=== PATIENT | female | born 1990 | race Two or more races ===

== ENCOUNTER 2022-03-08 01:18 | Emergency (ER) | payer OTHER ==
[~2022-03-08] VITALS: Ht 167.6 cm; Wt 81.8 kg
[2022-03-08] MEDS ORDERED: GUAI120017 PO (01:45)
[2022-03-08] MEDS ORDERED: ALBU8HFA IH (01:45)
[2022-03-08 01:52] LABS: COVID AG,FIA SOURCE NASAL SWAB
[2022-03-08 02:18] LABS: INFLUENZA TYPE A NEGATIVE FOR TYPE A (NEGATIVE); INFLUENZA TYPE B NEGATIVE FOR TYPE B (NEGATIVE)
[2022-03-08] MEDS ORDERED: ALBUTEROL SULFATE 2.5 MG/0.5 ML NEB SOLUTION NEB ONE (03:00)
[2022-03-08] MEDS ORDERED: ALBUTEROL SULFATE HFA 90 MCG/PUFF 8 GM INHALER IH ONE (03:00)
[2022-03-08] MEDS ORDERED: IPRATROPIUM BROMIDE 0.5 MG/2.5 ML NEB SOLUTION NEB ONE (03:00)
[2022-03-08 04:03] VITALS: BP 138/84
== END 2022-03-08 04:07 | disposition home or self-care (01) ==
LOC: EMS 01:20
DX: J45.901 Unspecified asthma with (acute) exacerbation (principal); F12.90 Cannabis use, unspecified, uncomplicated; D64.9 Anemia, unspecified; Z88.0 Allergy status to penicillin; Z20.822 Contact with and (suspected) exposure to COVID-19
CPT/HCPCS: 87804; 94060; 94640; 99284; J3535; J7613; Z7502

== ENCOUNTER 2022-03-13 17:09 | Emergency (ER) | payer OTHER ==
[~2022-03-13] VITALS: Ht 167.6 cm; Wt 81.8 kg
[~2022-03-13 17:09] MED LIST: ALBU8HFA IH; GUAI120017 PO
[2022-03-13 17:29] LABS: BASOPHILS % (AUTO) 0.6 % (0.0-2.0); EOSINOPHILS % (AUTO) 10.8 % (1.0-6.0); HEMATOCRIT 44.6 % (36-46); HEMOGLOBIN 14.8 g/dL (12.0-16.0); LYMPHOCYTES # (AUTO) 2.3 K/uL (1.0-4.8); LYMPHOCYTES % (AUTO) 14.9 % (22.0-44.0); MEAN CORPUSCULAR HEMOGLOBIN 30.5 pg (26.0-34.0); MEAN CORPUSCULAR HGB CONC 33.1 G/dL (31.0-37.0); MEAN CORPUSCULAR VOLUME 92 fL (80-100); MONOCYTES # (AUTO) 1.3 K/uL (0.1-1.0); MONOCYTES % (AUTO) 8.2 % (2.0-9.0); NEUTROPHILS # (AUTO) 10.3 K/uL (1.8-7.7); NEUTROPHILS % (AUTO) 65.5 % (40.0-70.0); PLATELET COUNT (AUTO) 354 K/uL (150-450); RED BLOOD CELL COUNT(AUTO) 4.84 MIL/uL (4.00-5.20); RED CELL DISTRIBUTION WIDTH 14.3 % (11.5-14.5)
[2022-03-13] MEDS ORDERED: ALBUTEROL SULFATE 2.5 MG/0.5 ML NEB SOLUTION NEB ONE ×2 (17:30→21:15)
[2022-03-13] MEDS ORDERED: MethylPREDNISolone SOD SUCC 125 MG/2 ML VIAL IVP ONE (17:30)
[2022-03-13] MEDS ORDERED: IPRATROPIUM BROMIDE 0.5 MG/2.5 ML NEB SOLUTION NEB ONE (17:30)
[2022-03-13 17:48] LABS: COVID AG,FIA SOURCE NASOPHARYNGEAL
[2022-03-13 17:51] LABS: ANION GAP 8 mmol/L (8-16); CALCIUM, TOTAL 9.7 mg/dL (8.8-10.5); CARBON DIOXIDE 26 mmol/L (22-29); CHLORIDE 97 mmol/L (98-107); CREATININE 0.75 mg/dL (0.60-1.30); GLUCOSE,RANDOM 96 mg/dL (70-110); POTASSIUM 3.5 mmol/L (3.5-5.1); SODIUM SERUM 131 mmol/L (136-145); UREA NITROGEN, BLOOD 4 mg/dL (7-18)
[2022-03-13 17:56] LABS: D-DIMER 0.54 mg/L FEU (0.00-0.50)
[2022-03-13 17:57] LABS: GLOMERULAR FILTR. RATE CALC > 60 mL/min (>60)
[2022-03-13 17:59] LABS: ALANINE AMINOTRANSFERASE 32 U/L (12-78); ALBUMIN 4.3 g/dL (3.4-5.0); ALKALINE PHOSPHATASE 122 U/L (46-116); ASPARTATE AMINOTRANSFERASE 22 U/L (15-37); BILIRUBIN,TOTAL 0.4 mg/dL (0.1-1.0); CREATINE KINASE, TOTAL ONLY 111 U/L (26-192)
[2022-03-13 18:04] LABS: B-TYPE NATRIURETIC PEPTIDE < 5 pg/mL (0-100)
[2022-03-13] MEDS ORDERED: IOHEXOL 350 MG/ML 100 ML VIAL ONE (18:16)
[2022-03-13] MEDS ORDERED: SODIUM CHLORIDE 0.9% 100 ML ONE (18:16)
[2022-03-13 18:39] LABS: INFLUENZA TYPE A NEGATIVE FOR TYPE A (NEGATIVE); INFLUENZA TYPE B NEGATIVE FOR TYPE B (NEGATIVE)
[2022-03-13] MEDS ORDERED: PRED-554 PO (21:55)
[2022-03-13] MEDS ORDERED: ALBUTEROL SULFATE HFA 90 MCG/PUFF 8 GM INHALER IH ONE (22:00)
[2022-03-13 22:19] VITALS: BP 110/68
== END 2022-03-13 22:34 | disposition still patient (30) ==
LOC: EMS 17:14
DX: J45.901 Unspecified asthma with (acute) exacerbation (principal); F12.90 Cannabis use, unspecified, uncomplicated; D64.9 Anemia, unspecified; Z20.822 Contact with and (suspected) exposure to COVID-19
CPT/HCPCS: 99285; 96374; 71275; 71045; 87426; 80053; 82550; 83735; 83880; 84484; 84703; 85025; 85379; 85610; 85730; 87804; 36415; 93005; 94640; 94060; 94644; J2930; Q9967; J7050; J3535; J7613

== ENCOUNTER 2022-12-05 13:47 | Emergency (ER) | payer OTHER ==
[~2022-12-05] VITALS: Ht 167.6 cm; Wt 88.6 kg
[~2022-12-05 13:47] MED LIST changes: +ALBU18HF12 IH; -ALBU8HFA IH; +PRED-554 PO
[2022-12-05 13:49] VITALS: TEMP 98.1
[2022-12-05] MEDS ORDERED: LORA10TA7 PO (13:51)
[2022-12-05] MEDS ORDERED: IPRATROPIUM BROMIDE 0.5 MG/2.5 ML NEB SOLUTION NEB ONE (14:30)
[2022-12-05] MEDS ORDERED: ALBUTEROL SULFATE 2.5 MG/0.5 ML NEB SOLUTION NEB ONE (14:30)
[2022-12-05 14:43] VITALS: PULSE 85; RESP 16; O2SAT 97
[2022-12-05 14:46] VITALS: PULSE 87; RESP 16; O2SAT 97
[2022-12-05] MEDS ORDERED: ALBUTEROL SULFATE HFA 90 MCG/PUFF 8 GM INHALER IH ONE (15:00)
[2022-12-05 15:04] VITALS: PULSE 63; RESP 16; O2SAT 99
[2022-12-05 15:57] VITALS: BP 134/87; PULSE 66; RESP 18
== END 2022-12-05 16:23 | disposition home or self-care (01) ==
LOC: EMS 13:53
DX: J45.901 Unspecified asthma with (acute) exacerbation (principal); Z88.0 Allergy status to penicillin; Z88.8 Allergy status to other drugs, medicaments and biological substances
CPT/HCPCS: 99283; 94640; J3535